=== PATIENT | female | born 1960 | race Caucasian/White ===

== ENCOUNTER 2025-01-08 14:26 | Inpatient (IN) | payer MEDICARE, MEDICAID ==
[~2025-01-08] VITALS: Ht 165.1 cm; Wt 80.3 kg
[~2025-01-08 14:26] MED LIST: BUSP10TA23 PO; LEVO50 PO; QUET200T30 PO; SIMV10TA97 PO; TRAZ-257 PO
[2025-01-08 14:54] LABS: BASOPHILS % (AUTO) 0.5 % (0.0-2.0); EOSINOPHILS % (AUTO) 0 % (1.0-6.0); HEMATOCRIT 40.5 % (36-46); HEMOGLOBIN 13.5 g/dL (12.0-16.0); LYMPHOCYTES # (AUTO) 1.9 K/uL (1.0-4.8); LYMPHOCYTES % (AUTO) 15.6 % (22.0-44.0); MEAN CORPUSCULAR HEMOGLOBIN 27.7 pg (26.0-34.0); MEAN CORPUSCULAR HGB CONC 33.3 G/dL (31.0-37.0); MEAN CORPUSCULAR VOLUME 83 fL (80-100); MONOCYTES # (AUTO) 0.8 K/uL (0.1-1.0); MONOCYTES % (AUTO) 6.2 % (2.0-9.0); NEUTROPHILS # (AUTO) 9.6 K/uL (1.8-7.7); NEUTROPHILS % (AUTO) 77.7 % (40.0-70.0); PLATELET COUNT (AUTO) 400 K/uL (150-450); RED BLOOD CELL COUNT(AUTO) 4.86 MIL/uL (4.00-5.20); RED CELL DISTRIBUTION WIDTH 15.8 % (11.5-14.5); WHITE BLOOD COUNT (AUTO) 12.4 K/uL (4.5-11.0)
[2025-01-08 15:01] LABS: CALCIUM, TOTAL 9.7 mg/dL (8.8-10.5); CREATININE 1.09 mg/dL (0.60-1.30); POTASSIUM 4.2 mmol/L (3.5-5.1)
[2025-01-08 17:39] LABS: COVID AG,FIA SOURCE NASAL SWAB
[2025-01-08 17:59] LABS: SARS-COV2 (COVID) ANTIGEN,FIA Negative (Negative)
[2025-01-08 18:29] LABS: APPEARANCE,URINE CLEAR (CLEAR); BILIRUBIN,URINE NEGATIVE (NEGATIVE); COLOR,URINE LIGHT YELLOW (YELLOW); GLUCOSE, URINE (UA) NEGATIVE (NEGATIVE); KETONES,URINE NEGATIVE (NEGATIVE); LEUKOCYTE ESTERASE ,URINE NEGATIVE (NEGATIVE); NITRATE,URINE NEGATIVE (NEGATIVE); OCCULT BLOOD,URINE NEGATIVE (NEGATIVE); PROTEIN,URINE TRACE mg/dL (NEGATIVE); SPECIFIC GRAVITIY, URINE 1.012 (1.003-1.030); UROBILINOGEN,URINE <=1.0 mg/dL (<=1.0)
[2025-01-08 18:36] LABS: AMPHET/METH SCREEN,URINE POSITIVE (NEGATIVE); BARBITURATE SCREEN, URINE NEGATIVE (NEGATIVE); BENZODIAZEPINES SCREEN,URINE NEGATIVE (NEGATIVE); CANNABINOID SCREEN,URINE POSITIVE (NEGATIVE); COCAINE SCREEN,URINE NEGATIVE (NEGATIVE); METHADONE SCREEN, URINE NEGATIVE (NEGATIVE); OPIATE SCREEN,URINE NEGATIVE (NEGATIVE); PHENCYCLIDINE SCREEN,URINE NEGATIVE (NEGATIVE)
[2025-01-08 18:37] LABS: ALCOHOL, URINE DRUG SCREEN NEGATIVE (NEGATIVE)
[2025-01-09] VITALS (14 sets, daily range): BP systolic 98–137; BP diastolic 64–97; PULSE 85–130; RESP 16–18; TEMP 97–98.1; O2SAT 95–99
[2025-01-09] MEDS: LORazepam 2 MG TABLET PO PRN (00:56)
[2025-01-09] MEDS: ZOLPIDEM TARTRATE 10 MG TABLET PO PRN (02:14)
[2025-01-09] MEDS: haloperidoL 5 MG TABLET PO PRN (02:14)
[2025-01-09] MEDS ORDERED: BENZOCAINE/MENTHOL [CEPACOL] LOZENGE PO PRN (08:45)
[2025-01-09] MEDS ORDERED: MAG HYDROX/ALUMINUM HYD/SIMETH ES 30 ML SUSPENSION UDCUP PO PRN (08:45)
[2025-01-09] MEDS ORDERED: ALBUTEROL SULFATE HFA 90 MCG/PUFF 8 GM INHALER IH PRN (08:45)
[2025-01-09] MEDS ORDERED: ACETAMINOPHEN 325 MG TABLET PO PRN (08:45)
[2025-01-09] MEDS ORDERED: OMEPRAZOLE 20 MG CAPSULE PO PRN (08:45)
[2025-01-09] MEDS ORDERED: CloNIDine HCL 0.1 MG TABLET PO PRN (08:45)
[2025-01-09] MEDS ORDERED: LOPERAMIDE HCL 2 MG CAPSULE PO PRN (08:45)
[2025-01-09] MEDS ORDERED: MAGNESIUM HYDROXIDE SUSPENSION 30 ML UDCUP PO PRN (08:45)
[2025-01-09] MEDS ORDERED: DOCUSATE SODIUM 100 MG CAPSULE PO PRN (08:45)
[2025-01-09] MEDS ORDERED: BACITRACIN 28 GM OINTMENT TP PRN (08:45)
[2025-01-09] MEDS ORDERED: ONDANSETRON 4 MG TABLET PO PRN (08:45)
[2025-01-09] MEDS ORDERED: PETROLATUM,WHITE 28 GM JELLY TP PRN (08:45)
[2025-01-09] MEDS: LEVOTHYROXINE SODIUM 50 MCG TABLET PO SCH (09:17)
[2025-01-09] MEDS: BusPIRone HCL 10 MG TABLET PO SCH ×2 (09:17→17:00)
[2025-01-09] MEDS: SIMVASTATIN 10 MG TABLET PO SCH (20:52)
[2025-01-09] MEDS: TraZODone HCL 100 MG TABLET PO SCH (20:52)
[2025-01-09] MEDS: QUEtiapine FUMARATE 200 MG TABLET PO SCH (20:53)
[2025-01-09] MEDS ORDERED: QUEtiapine FUMARATE 200 MG TABLET PO SCH (21:00)
[2025-01-09] MEDS ORDERED: TraZODone HCL 100 MG TABLET PO SCH (21:00)
[2025-01-10 02:00] VITALS: RESP 18
[2025-01-10 06:00] VITALS: BP 111/78; PULSE 93; RESP 18; TEMP 97.6
[2025-01-10 08:21] VITALS: BP 117/73; PULSE 79; RESP 16; TEMP 97.6; O2SAT 97
[2025-01-10 09:40] VITALS: BP 117/73; PULSE 79; RESP 16; TEMP 97.6; O2SAT 97
[2025-01-10 20:45] VITALS: RESP 16
[2025-01-10 22:26] VITALS: RESP 16
[2025-01-11 08:25] VITALS: BP 93/67; PULSE 90; RESP 16; TEMP 97.2; O2SAT 97
[2025-01-11 09:00] VITALS: BP 93/67; PULSE 90; RESP 16; TEMP 97.2; O2SAT 97
[2025-01-11 20:22] VITALS: RESP 18
[2025-01-11 22:05] VITALS: RESP 18
[2025-01-12 08:27] VITALS: BP 100/65; PULSE 88; RESP 16; TEMP 98.2; O2SAT 96
[2025-01-12 11:05] VITALS: BP 100/65; PULSE 88; RESP 16; TEMP 98.2; O2SAT 96
[2025-01-12 20:37] VITALS: BP 120/86; PULSE 61; RESP 16; TEMP 98.6; O2SAT 97
[2025-01-13 08:08] VITALS: BP 129/78; PULSE 74; RESP 16; TEMP 97.6; O2SAT 97
[2025-01-13 09:27] VITALS: BP 129/78; PULSE 74; RESP 16; TEMP 97.6; O2SAT 97
[2025-01-13 20:28] VITALS: BP 108/69; PULSE 69; RESP 16; TEMP 97.5; O2SAT 97
[2025-01-14 02:54] VITALS: BP 108/69; PULSE 69; RESP 16; TEMP 97.5; O2SAT 97
[2025-01-14 08:48] VITALS: BP 100/56; PULSE 85; RESP 16; TEMP 97.4; O2SAT 96
[2025-01-14 13:30] VITALS: BP 119/90; PULSE 100; RESP 18; TEMP 97.4; O2SAT 98
[2025-01-14 20:26] VITALS: BP 103/85; PULSE 100; RESP 16; TEMP 98; O2SAT 98
[2025-01-14 21:42] VITALS: BP 103/85; PULSE 100; RESP 16; TEMP 98; O2SAT 98
[2025-01-15 08:00] VITALS: BP 105/64; PULSE 75; RESP 16; TEMP 97.7; O2SAT 96
[2025-01-15 08:38] VITALS: BP 105/64; PULSE 75; RESP 16; TEMP 97.7; O2SAT 96
[2025-01-15 21:21] VITALS: BP 100/72; PULSE 90; RESP 17; TEMP 97.4; O2SAT 97
[2025-01-15 21:54] VITALS: BP 100/72; PULSE 90; RESP 17; TEMP 97.4; O2SAT 97
[2025-01-16 08:39] VITALS: BP 129/82; PULSE 78; RESP 18; TEMP 97.9; O2SAT 96
[2025-01-16 09:40] VITALS: BP 129/82; PULSE 96; RESP 18; TEMP 97.9; O2SAT 96
[2025-01-16 16:09] VITALS: RESP 18
[2025-01-16] MEDS: IBUPROFEN 600 MG TABLET PO PRN (16:09)
[2025-01-16 17:09] VITALS: RESP 17
[2025-01-16 20:00] VITALS: BP 114/63; PULSE 84; RESP 17; TEMP 97.8; O2SAT 100
[2025-01-17 08:22] VITALS: BP 122/69; PULSE 88; RESP 16; TEMP 97.6; O2SAT 97
[2025-01-17 08:25] VITALS: BP 122/69; PULSE 84; RESP 16; TEMP 96.9; O2SAT 97
== END 2025-01-17 17:25 | disposition home or self-care (01) | DRG 885 ==
LOC: EMS 14:26 → B3A 01-09 01:20
PROVIDERS: ADMIT Psychiatry & Neurology Psychiatry; ATTEND Psychiatry & Neurology Psychiatry
PROC: GZHZZZZ Group Psychotherapy (ICD-10-PCS; principal; 2025-01-09)
PROC: GZ52ZZZ Individual Psychotherapy, Cognitive (ICD-10-PCS; 2025-01-09)
DX: F31.5 Bipolar disorder, current episode depressed, severe, with psychotic features (principal); F41.9 Anxiety disorder, unspecified; E78.5 Hyperlipidemia, unspecified; E03.9 Hypothyroidism, unspecified; Z20.822 Contact with and (suspected) exposure to COVID-19; G47.00 Insomnia, unspecified; K59.00 Constipation, unspecified; R73.03 Prediabetes; F15.159 Other stimulant abuse with stimulant-induced psychotic disorder, unspecified; G89.29 Other chronic pain; F43.12 Post-traumatic stress disorder, chronic; F12.10 Cannabis abuse, uncomplicated; Z79.899 Other long term (current) drug therapy; Z72.0 Tobacco use; Z91.51 Personal history of suicidal behavior
CPT/HCPCS: 80048; 80307; 85025; 87081; 99285; G0480